=== PATIENT | male | born 1995 | race Caucasian/White ===

== ENCOUNTER 2021-12-05 11:48 | Emergency (ER) | payer OTHER, SELFPAY ==
[2021-12-05 12:44] VITALS: BP 0/0; PULSE 0; RESP 0; TEMP -17.7; TEMP 0
== END 2021-12-05 12:46 | disposition left against medical advice (07) ==
PROVIDERS: Emergency Provider Nurse Practitioner Family
DX: Z53.21 Procedure and treatment not carried out due to patient leaving prior to being seen by health care provider (principal)

== ENCOUNTER 2022-10-06 10:06 | Emergency (ER) | payer SELFPAY ==
[2022-10-06 10:12] VITALS: BP 123/78; PULSE 74; RESP 18; TEMP 36.6; O2SAT 99; BMI 21.2
[2022-10-06 10:30] VITALS: BP 123/78; PULSE 74; RESP 18; TEMP 36.6; O2SAT 99; BMI 21.2
[2022-10-06 10:39] VITALS: BP 123/78; PULSE 74; RESP 18; TEMP 36.6; O2SAT 99
--- NOTE | 2022-10-06 11:05 | EXP.UTC ---
Discharge Plan Disposition Patient Disposition: Home, Self-Care Condition: Good Prescriptions Prescriptions: New sulfamethoxazole-trimethoprim [Bactrim DS] 800-160 mg tablet 1 tab PO Q12H 10 Days Qty: 20 0RF mupirocin 2 % ointment 1 applic topical TID Qty: 22 0RF Referrals Follow up/Referrals: Cecilio Sandoval MD [Primary Care Provider] - See instructions Activity Restrictions/Add. Instructions Additional Instructions/Restrictions: Take medication as prescribed. Keep area clean and dry. If finger gets worse instead of better then return to [facility]. Follow up with PCP on Saturday. Clinical Impressions Clinical Impression: Abrasion of right index finger with infection Discharge ED Provider: Carina Painter [facility] [place] Stated complaint: right pointer finger swollen and redness Mode of Arrival: Ambulatory Source of Information: Patient Limitations: No Limitations Time Seen by Provider: 10/06/22 11:04 Description of Symptoms (Recalled from Triage Doc. by RN): PATIENT C/O REDNESS AND SWELLING TO RIGHT INDEX FINGER X 1 WEEK HEENT Symptoms (Recalled from RN notes): No Resp Symptoms (Recalled from RN notes): No Skin Symptoms (Recalled from RN notes): Yes MS Symptoms (Recalled from RN notes): No Functional Status (Recalled from RN notes): WNL History of Present Illness Provider Complaint: Pt states that he was closing a window on Saturday and got what he thought was paper cut. He states that he noticed that it was swelling and sore and took some old Clindamycin. He states that the finger has continued to get worse and he worries he may have a spider bite or staph. He reports a history of MRSA. Related Data Previous Rx's Medication Instructions Recorded mupirocin 2 % topical ointment 1 applic topical TID #22 grams 10/06/22 sulfamethoxazole 800 1 tab PO Q12H 10 days #20 tabs 10/06/22 mg-trimethoprim 160 mg tablet (Bactrim DS) Allergies Allergy/AdvReac Type Severity Reaction Status Date / Time No Known Allergies Allergy Verified 04/04/22 13:09 Worker's Comp Is this a Worker's Comp case?: No [facility] Disclaimer: The information contained in this section may have been updated after the patient was seen, as this information can be updated by other users. Social History Smoking Status: Current every day smoker tobacco type: cigars alcohol intake: never substance use type: denies use current occupational status: employed Travel in the last 8 weeks: None household members: spouse and children housing: house ROS Obtained: Yes All systems reviewed & no additional complaints except as documented Constitutional Constitutional: Reports system reviewed and no additional complaints, except as documented Eyes Eyes: Reports system reviewed and no additional complaints, except as documented ENT Ears, Nose, Mouth, and Throat: Reports system reviewed and no additional complaints, except as documented Cardiovascular Cardiovascular: Reports system reviewed and no additional complaints, except as documented Respiratory Respiratory: Reports system reviewed and no additional complaints, except as documented Gastrointestinal Gastrointestingal: Reports system reviewed and no additional complaints, except as documented Genitourinary Male Genitourinary: Reports system reviewed and no additional complaints, except as documented Musculoskeletal Musculoskeletal: Reports as per HPI, Reports arthralgias, Reports joint stiffness, Reports joint swelling and Reports small joint pain in the hands Integumentary/Breasts Skin/Breast: Reports as per HPI, Reports redness, Reports lesions, Reports skin pain, Reports skin ulcer and Reports skin swelling Neurologic Neurologic: Reports system reviewed and no additional complaints, except as documented Endocrine Endocrine: Reports system reviewed and no additional complaints, except as documented Hematologic/Lymphat
== END 2022-10-06 11:29 | disposition home or self-care (01) ==
LOC: ER 10:17 → UTC 10:25
PROVIDERS: Emergency Provider Nurse Practitioner Family; PCP Family Medicine
DX: S60.410A Abrasion of right index finger, initial encounter (principal); L08.9 Local infection of the skin and subcutaneous tissue, unspecified; F17.290 Nicotine dependence, other tobacco product, uncomplicated; W22.8XXA Striking against or struck by other objects, initial encounter
CPT/HCPCS: 99212; 99214; G0463